=== PATIENT | male | born 1940 | race Caucasian/White ===

== ENCOUNTER 2017-01-28 10:55 | Day surgery (SDC) | payer OTHER ==
[2017-01-27 12:13] VITALS: BMI 29.1
[2017-01-28 11:42] VITALS: TEMP 97.8
[2017-01-28] MEDS ORDERED: BETAMET ACET/BETAMET NA PH 30 MG/5 ML VIAL ONE (13:00)
[2017-01-28] MEDS ORDERED: BUPIVACAINE HCL/PF 0.25% (2.5MG/ML) 10 ML VIAL ONE (13:00)
[2017-01-28] MEDS ORDERED: LIDOCAINE HCL 1%, 10 MG/ML (20ML VIAL) ONE (13:00)
[2017-01-28] MEDS ORDERED: PROPOFOL 20 ML ONE (13:51)
[2017-01-28] MEDS ORDERED: IOHEXOL 180 MG/1 ML ML IJ ONE (14:02)
[2017-01-28] MEDS ORDERED: BETAMET ACET/BETAMET NA PH 30 MG/5 ML VIAL IJ ONE (14:02)
[2017-01-28] MEDS ORDERED: BUPIVACAINE HCL/PF 0.25% (2.5MG/ML) 10 ML VIAL IJ ONE (14:03)
[2017-01-28] MEDS ORDERED: LIDOCAINE HCL 1%, 10 MG/ML (20ML VIAL) IJ ONE (14:03)
--- NOTE | 2017-01-28 17:28 | OP ---
DATE OF OPERATION: 01/28/2017 PREOPERATIVE DIAGNOSES: Low back pain, lumbar radiculopathy on the right side. POSTOPERATIVE DIAGNOSES: Low back pain, lumbar radiculopathy on the right side. PROCEDURE: Lumbar epidural steroid injection, interlaminar at the L5-S1 level on the right side. ANESTHESIA: Local and MAC. ANESTHESIOLOGIST: Lavinia Wilder MD CONSENT: I discussed with him about the risks, benefits, and alternative treatment, not only limited to infection, fever, headache, numbness, tingling, and weakness; injury to nerves, blood vessels, and muscles. Patient understood and agreed and signed the written consent. DESCRIPTION OF PROCEDURE: Patient was placed in the prone position with head, abdomen, and legs supported with pillows. Lumbosacral area was prepped, draped with Betadine x3 and alcohol x3. At the level of L4-L5 on the right side, 3 mL of 1% lidocaine was infiltrated. A 20-gauge 3-1/2-inch Tuohy needle was used to approach the epidural space, but the space was very narrow and difficult to get the space due to also osteophytes. So, at this level it failed. Then at the level of the L5-S1 on the right side, 3 mL of 1% lidocaine was infiltrated, and a 20-gauge 3-1/2-inch Tuohy needle was used to approach the epidural space with loss of resistance technique with intermittent fluoroscopy. After negative aspiration of blood and CSF, Omnipaque 2 mL was injected to see the flow of dye into the epidural space both caudocranially. There was no positive uptake or CSF spread. Then, 2.5 mL of Celestone mixed with 2.5 mL of 0.25% preservative-free Marcaine, total of 5 mL was injected into the epidural space after needle aspiration. While needle was withdrawn, 1 mL of 1% lidocaine was infiltrated. Patient tolerated the procedure well. There was no immediate complication. Bleeding was checked. Betadine was wiped off. A sterile bandage was placed. Patient was transferred to recovery room, observed, and discharged as per ASU criteria. Patient was told to apply ice. If any problem, call me or report to the ER. ALMA DELIA ALEXIS M.D. [id number]
[2017-01-28 17:50] VITALS: BP 156/51; PULSE 16
== END 2017-01-28 15:15 | disposition home or self-care (01) ==
LOC: JASU-SURG 10:55
PROVIDERS: ATTEND Physical Medicine & Rehabilitation
PROC: 3E0S33Z Introduction of Anti-inflammatory into Epidural Space, Percutaneous Approach (ICD-10-PCS; 2017-01-28)
PROC: B01BYZZ Fluoroscopy of Spinal Cord using Other Contrast (ICD-10-PCS; 2017-01-28)
PROC: 3E0S3BZ Introduction of Anesthetic Agent into Epidural Space, Percutaneous Approach (ICD-10-PCS; principal; 2017-01-28 12:45)
DX: M54.16 Radiculopathy, lumbar region (principal); M54.5 Low back pain
CPT/HCPCS: 76000-TC

== ENCOUNTER 2017-07-08 07:29 | Day surgery (SDC) | payer OTHER ==
[2017-06-23 11:50] VITALS: BMI 29.1
[2017-07-08] MEDS ORDERED: BETAMET ACET/BETAMET NA PH 30 MG/5 ML VIAL ONE (07:42)
[2017-07-08] MEDS ORDERED: LIDOCAINE HCL 1%, 10 MG/ML (20ML VIAL) ONE (07:42)
[2017-07-08] MEDS ORDERED: BUPIVACAINE HCL/PF 0.25% (2.5MG/ML) 10 ML VIAL ONE (07:43)
[2017-07-08 08:00] VITALS: TEMP 98
[2017-07-08] MEDS ORDERED: LIDOCAINE HCL 1%, 10 MG/ML (20ML VIAL) PNB ONE ×2 (09:46→09:52)
[2017-07-08] MEDS ORDERED: IOHEXOL 180 MG/1 ML ML IJ ONE (09:46)
[2017-07-08] MEDS ORDERED: BUPIVACAINE HCL/PF 0.25% (2.5MG/ML) 10 ML VIAL IJ ONE (09:46)
[2017-07-08] MEDS ORDERED: BETAMET ACET/BETAMET NA PH 30 MG/5 ML VIAL IM ONE (09:46)
[2017-07-08 12:28] VITALS: BP 136/66; PULSE 57
== END 2017-07-08 11:25 | disposition home or self-care (01) ==
LOC: JASU-SURG 07:29
PROVIDERS: ATTEND Physical Medicine & Rehabilitation
PROC: 3E0R33Z Introduction of Anti-inflammatory into Spinal Canal, Percutaneous Approach (ICD-10-PCS; 2017-07-08)
PROC: B01BYZZ Fluoroscopy of Spinal Cord using Other Contrast (ICD-10-PCS; 2017-07-08)
PROC: 3E0R3BZ Introduction of Anesthetic Agent into Spinal Canal, Percutaneous Approach (ICD-10-PCS; principal; 2017-07-08 09:00)
DX: M54.16 Radiculopathy, lumbar region (principal); M54.5 Low back pain
CPT/HCPCS: 76000-TC